=== PATIENT | female | born 1975 | race Caucasian/White ===

== ENCOUNTER 2016-12-07 05:44 | Day surgery (SDC) | payer OTHER ==
--- NOTE | 2016-12-06 18:19 | GHP ---
[f rep st] PREOP HISTORY AND PHYSICAL DATE OF ADMISSION: 12/07/2016 DATE OF PLANNED PROCEDURE: 12/07/2016. PLANNED PROCEDURE: Suction dilation and curettage for missed . INDICATIONS: The patient is a 41-year-old 3, para 1-0-1-1, who had a positive test in October of 2016. She had serial labs obtained, which were rising appropriately. She had an ultrasound done on 11/30, which showed a crown-rump length of 6 weeks 3 days with no cardiac activity, diagnosis of missed was made. Management options were reviewed with the patient. The patient elected to proceed with Cytotec. She did have some cramping and passed some tissue. A followup ultrasound was done on 12/06, which showed no gestational sac, and a 1.7 x 1.5 x 1.6 cm hyperechoic mass with some flow, possibly retained products of conception with a vessel noted. Management options were reviewed with the patient, including expectant management versus repeat medical management versus suction dilation and curettage. The patient is electing to proceed with a suction dilation and curettage. Risks and benefits have been extensively reviewed with the patient. The patient has been properly consented. PAST MEDICAL HISTORY: History of Crohn's disease, migraines, anemia secondary to menorrhagia and Crohn's disease, osteopenia, and heart murmur. MEDICATIONS: Iron infusions. PAST SURGICAL HISTORY: Multiple colonoscopies. Resection of small intestine in February 2007, appendectomy was performed at that time. A second small bowel resection and drainage of an abscess from the small intestine was performed in 2014. Hysteroscopy with morcellation of submucosal fibroid. ALLERGIES: Percocet, which causes nausea. SOCIAL HISTORY: The patient is . She denies tobacco or drug use. She does drink alcohol socially when not . FAMILY MEDICAL HISTORY: Noncontributory. SUPERINTENDENT BUILDING HISTORY: Menarche age 13. Periods every 24-28 days, lasting 7 days. She is a 3, para 1-0-1-1. She had a spontaneous of 11/2012. She had a spontaneous vaginal delivery of 10/2013, and most current is an incomplete . She does have a remote history of abnormal Pap smears, but they have all been normal recently. She denies any history of any sexually transmitted diseases. REVIEW OF SYSTEMS: A 10-point review of systems is negative with the exception of positive vaginal bleeding. PHYSICAL EXAM: VITAL SIGNS: Stable. GENERAL APPEARANCE: Alert and oriented x3. PSYCH: She has appropriate affect. NECK: Mobile and supple. MUSCULOSKELETAL: Grossly intact. NEURO: Grossly intact. HEART: Irregularly irregular. LUNGS: Clear to auscultation bilaterally. ABDOMEN: Soft, nondistended, nontender. EXTREMITIES: No calf tenderness or edema. PELVIC: Deferred. Pelvic ultrasound was described above. The patient's blood type is O positive. ASSESSMENT AND PLAN: A 41-year-old 3, para 1-0-1-1, who has an incomplete . The patient is going to undergo suction dilation and curettage. Risks and benefits have been reviewed with the patient. The patient has been properly consented. /[id number]/MODL MTDD
[2016-12-07] MEDS ORDERED: DOXYCYCLINE HYCLATE 100 MG CAP/TAB PO ONE ×2 (06:00→09:00)
[2016-12-07 06:10] LABS: % IMMATURE GRANULYOCYTES 0.4 % (0.0-1.1); ABSOLUTE IMMATURE GRANULOCYTES 0.02 10^3/uL (0.00-0.10); ADD DIFF? NO; ADD MORPH? NO; ADD SCAN? NO; ATYPICAL LYMPHOCYTE FLAG 10 (0-99); FRAGMENT RBC FLAG 0 (0-99); HEMATOCRIT 36.8 % (38.0-47.0); HEMOGLOBIN 12.1 g/dL (12.6-16.3); LEFT SHIFT FLG 0 (0-99); LIPEMIA HEMOLYSIS FLAG 80 (0-99); MEAN CELL HEMOGLOBIN 29.9 pg (27.9-34.1); MEAN CELL HEMOGLOBIN CONCENTR. 32.9 g/dL (32.4-36.7); MEAN CELL VOLUME 90.9 fL (81.5-99.8); PLATELET CLUMPS FLAG 0 (0-99); PLATELET COUNT 182 10^3/uL (150-400); RED BLOOD CELL COUNT 4.05 10^6/uL (4.18-5.33)
[2016-12-07] MEDS ORDERED: LIDOCAINE 1% 300 MG/30 ML SDV ONE (07:25)
[2016-12-07] MEDS ORDERED: MISOPROSTOL 200 MCG TAB ONE (07:26)
[2016-12-07] MEDS ORDERED: AMMONIA AROMATIC 1 EACH AMP IH ONE (07:26)
[2016-12-07] MEDS ORDERED: OXYTOCIN 10 UNIT/ML VIAL ONE (07:26)
[2016-12-07] MEDS ORDERED: MIDAZOLAM 2 MG/2 ML VIAL ONE (07:30)
--- NOTE | 2016-12-07 07:39 | PDANEPAE ---
ANE History of Present Illness Missed Ab. ANE Past Medical History - Cardiovascular History Hx Hypertension: No Hx Arrhythmias: No Hx Chest Pain: No Hx Coronary Artery / Peripheral Vascular Disease: No Hx CHF / Valvular Disease: No Hx Palpitations: No - Pulmonary History Hx COPD: No Hx Asthma/Reactive Airway Disease: No Hx Recent Upper Respiratory Infection: No Hx Oxygen in Use at Home: No Hx Sleep Apnea: No - Neurologic History Hx Cerebrovascular Accident: No Hx Seizures: No Hx Dementia: No - Endocrine History Hx Diabetes: No - Renal History Hx Renal Disorders: No - Liver History Hx Hepatic Disorders: No - Neurological & Psychiatric Hx Hx Neurological and Psychiatric Disorders: No - Cancer History Hx Cancer: No - Congenital Disorder History Hx Congenital Disorders: No - GI History Hx Gastrointestinal Disorders: Yes Gastrointestinal History Comment: CROHN'S. - Other Health History Other Health History: ANEMIA, HAD IRON INFUSION TODAY 01/18. OSTEOPENIA - Chronic Pain History Chronic Pain: No - Surgical History Prior Surgeries: 2 SMALL BOWEL RESECTION, COLONOSCOPIES ANE Review of Systems Review of Systems: ANE Patient History - Allergies Allergies/Adverse Reactions: oxycodone HCl [From Percocet] Adverse Reaction (Intermediate, Verified 12/07/16 06:13) NAUSEA - NPO status NPO Status: no food or drink >8 hours - Anes Hx Anes Hx: post operative nausea - Smoking Hx Smoking Status: Never smoked - Alcohol Use Alcohol Use: Rarely - Family Anes Hx Family Anes Hx: neg - N/A Family Hx Anesthesia Complications: NONE ANE Labs/Vital Signs - Labs Result Diagrams: 12/07/16 05:57 - Vital Signs Height: 157.48 cm Weight: 56.699 kg ANE Physical Exam - Airway Neck exam: FROM Mallampati Score: Class 1 Mouth exam: normal dental/mouth exam - Pulmonary Pulmonary: no respiratory distress - Cardiovascular Cardiovascular: regular rate and rhythym - ASA Status ASA Status: I ANE Anesthesia Plan Anesthesia Plan: GA with mask
[2016-12-07] MEDS ORDERED: fentaNYL 100 MCG/2 ML INJ ONE (07:55)
[2016-12-07] MEDS ORDERED: PROPOFOL/EMULSION 500 MG/50 ML BOTTLE IV ONE (07:55)
[2016-12-07] MEDS ORDERED: LIDOCAINE 2% 5 ML SDV ONE (08:24)
[2016-12-07] MEDS ORDERED: ONDANSETRON 4 MG/2 ML VIAL ONE ×2 (08:24)
[2016-12-07] MEDS ORDERED: DEXAMETHASONE 4 MG/ML VIAL ONE ×2 (08:24)
--- NOTE | 2016-12-07 09:36 | GOP ---
[f rep st] OPERATIVE REPORT DATE OF OPERATION: 12/07/2016 SURGEON: Alpa Moulton DO ANESTHESIA: Sedation. ANESTHESIOLOGIST: Jayson Donnelly. PREOPERATIVE DIAGNOSIS: Incomplete . POSTOPERATIVE DIAGNOSIS: Incomplete . PROCEDURE PERFORMED: Suction dilation and curettage. FINDINGS: Mobile and midposition uterus with no adnexal masses. Post D and C ultrasound, thin endom etrial stripe. SPECIMENS: Small amount of retained products of conception. INDICATIONS: Patient is a 41-year-old, 3, para 1-0-1-1, who presented for a new OB visit in our office 2 weeks ago. She was measuring size less than dates. Management options were reviewed wi th the patient. Patient elected to proceed with medical management with Cytotec. She took the pills and passed most of the products of conception. However, there was a small amount of products of con ception left. Management options again were reviewed with the patient and patient elected to proceed with a suction dilation and curettage. Risks and benefits were reviewed with the patient and patien t was properly consented. DESCRIPTION OF PROCEDURE: The patient was given p.o. doxycycline prior to going back to the [facility] room. She was then placed on the operating room table in a dorsal supine position where anesthesia was obtained. She was then repositioned into the dorsal lithotomy position with the Mayi alexis ps and prepped and draped in a normal sterile fashion. A speculum was then placed in the patient's v agina. An Allis clamp was used to grasp the anterior lip of the cervix. The cervix was then careful ly dilated to allow for the introduction of a 10 curved suction curette. A suction curettage was per formed. A small amount of tissue was noted. A sharp metal curette was then introduced, and a circum ferential curettage was gently performed until a gritty texture was noted. No additional products of conception were noted. A transvaginal ultrasound was performed, and a thin endometrial stripe was n oted. Instruments were then removed from the patient's vagina. Bleeding was noted to be minimal. T he patient was returned to the dorsal supine position where she was easily awoken from anesthesia. S ponge count was correct. The patient was transported to recovery room in stable condition. /[id number]/MODL
[2016-12-07] MEDS ORDERED: KETOROLAC 30 MG/1 ML SDV ONE (09:37)
[2016-12-07] MEDS ORDERED: NALOXONE HCL 0.4 MG/ML INJ IVP PRN (09:39)
[2016-12-07] MEDS ORDERED: LR 500 ML IV PRN (09:39)
[2016-12-07] MEDS ORDERED: HYDROCODONE/APAP 5/325 TAB PO PRN (09:39)
[2016-12-07] MEDS ORDERED: fentaNYL 100 MCG/2 ML INJ IVP PRN (09:39)
--- NOTE | 2016-12-07 09:39 | POSTANESTH ---
Post Anesthetic Evaluation Cardiovascular Status: Normal, Stable, Similar to Pre-Op Cond Respiratory Status: Normal, Stable, Similar to Pre-op Cond. Level of Consciousness/Mental Status: Can Participate in Eval, Alert and Oriented Pain Control: Adequate, Prn Tx Ordered Nausea/Vomiting Control: Adequate, Prn Tx Ordered Complications Possibly Related to Anesthesia: None Noted
[2016-12-07] MEDS ORDERED: KETOROLAC 30 MG/1 ML SDV IVP ONE (10:01)
== END 2016-12-07 09:57 | disposition home or self-care (01) ==
LOC: FOBOP 05:44
PROVIDERS: ATTEND Obstetrics & Gynecology
PROC: 10D17ZZ Extraction of Products of Conception, Retained, Via Natural or Artificial Opening (ICD-10-PCS; principal; 2016-12-07)
DX: O03.4 Incomplete spontaneous abortion without complication (principal)
CPT/HCPCS: J1100; J1885; J2250; J2405; J2704; J3010